=== PATIENT | female | born 1995 | race Caucasian/White ===

== ENCOUNTER 2019-04-05 03:55 | Emergency (ER) | payer OTHER ==
[~2019-04-05] VITALS: Ht 152.4 cm; Wt 56.7 kg
[2019-04-05 03:55] VITALS: BP 128/83
[2019-04-05] MEDS ORDERED: BIRTH CONTROL PILL (04:19)
== END 2019-04-05 04:31 | disposition home or self-care (01) ==
LOC: M.ERS 03:55
DX: F41.9 Anxiety disorder, unspecified (principal)